=== PATIENT | male | born 1955 | race Caucasian/White ===

== ENCOUNTER 2022-11-25 04:28 | Day surgery (SDC) | payer OTHER, BC ==
[2022-11-20 15:03] VITALS: BMI 33.6
[2022-11-25] MEDS ORDERED: BUPIVACAINE HCL/PF 0.5% (5MG/ML) 10 ML VIAL ONE (08:53)
[2022-11-25] MEDS ORDERED: MIDAZOLAM HCL 2 MG/2 ML SINGLE DOSE VIAL ONE (09:06)
[2022-11-25] MEDS ORDERED: ceFAZolin SODIUM 1 GM VIAL IVPB ONE ×2 (09:28→09:50)
[2022-11-25] MEDS ORDERED: SODIUM CHLORIDE 0.9% P/F 10 ML VIAL IJ ONE (09:29)
[2022-11-25] MEDS ORDERED: PROPOFOL 20 ML ONE ×2 (09:29→09:54)
[2022-11-25] MEDS ORDERED: LIDOCAINE HCL/PF 2% SDV 5ML VIAL ONE (09:29)
[2022-11-25] MEDS ORDERED: ceFAZolin SODIUM 1 GM VIAL ONE (09:40)
[2022-11-25] MEDS ORDERED: KETOROLAC TROMETHAMINE 30 MG/1 ML VIAL ONE ×2 (09:40→10:05)
[2022-11-25] MEDS ORDERED: ONDANSETRON 4 MG/2 ML VIAL ONE (09:40)
[2022-11-25] MEDS ORDERED: DEXAMETHASONE SOD PHOSPHATE 4 MG/1 ML VIAL ONE (09:40)
[2022-11-25] MEDS ORDERED: BUPIVACAINE HCL/PF 0.5% (5MG/ML) 10 ML VIAL IJ ONE (10:26)
[2022-11-25] MEDS ORDERED: METOPROLOL TARTRATE 5 MG/5 ML VIAL ONE (10:29)
[2022-11-25] MEDS ORDERED: PROMETHAZINE HCL 25 MG/1 ML VIAL IVPB PRN (11:11)
[2022-11-25] MEDS ORDERED: oxyCODONE HCL 5 MG TABLET PO PRN (11:11)
[2022-11-25] MEDS ORDERED: ONDANSETRON 4 MG/2 ML VIAL IVPUSH PRN (11:11)
[2022-11-25] MEDS ORDERED: LACTATED RINGERS SOLUTION 1,000 ML IV SCH (11:15)
[2022-11-25 12:10] VITALS: PULSE 73; RESP 20
[2022-11-25 14:08] VITALS: BP 121/84; TEMP 98
== END 2022-11-25 14:12 | disposition home or self-care (01) ==
LOC: JASU-SURG 04:28
PROVIDERS: ATTEND Orthopaedic Surgery
PROC: 0SBC4ZZ Excision of Right Knee Joint, Percutaneous Endoscopic Approach (ICD-10-PCS; 2022-11-25)
PROC: 0SBC4ZZ Excision of Right Knee Joint, Percutaneous Endoscopic Approach (ICD-10-PCS; principal; 2022-11-25 09:00)
DX: S83.281A Other tear of lateral meniscus, current injury, right knee, initial encounter (principal); S83.241A Other tear of medial meniscus, current injury, right knee, initial encounter; X58.XXXA Exposure to other specified factors, initial encounter; Y93.9 Activity, unspecified; Y92.9 Unspecified place or not applicable; Y99.9 Unspecified external cause status; M23.41 Loose body in knee, right knee; M65.861 Other synovitis and tenosynovitis, right lower leg
CPT/HCPCS: 94760